=== PATIENT | female | born 1975 | race Caucasian/White ===

== ENCOUNTER 2019-11-27 17:38 | Emergency (ER) | payer BC, SELFPAY ==
--- NOTE | ~2019-11-27 | XR_ITS ---
XR wrist RT min 3V 11/27/2019 18:03 INDICATION: Right wrist pain PROCEDURE: 4 views right wrist COMPARISON: No prior studies for comparison. FINDINGS: Fracture, dislocation or subluxation is not identified. The soft tissues appear within norm al limits. No foreign bodies are identified. IMPRESSION: 1: NO ACUTE BONE OR JOINT ABNORMALITY IDENTIFIED. Reviewed, dictated and finalized at location A.
[2019-11-27 17:48] VITALS: BP 131/70; PULSE 66; RESP 18; TEMP 36.5; O2SAT 100
--- NOTE | 2019-11-27 18:03 | ED.UPPEXIN ---
HPI - Extremity Injury (Upper) General Chief Complaint: Extremity Injury, Upper Stated Complaint: right wrist injury Time Seen by Provider: 11/27/19 18:03 Source: patient and RN notes reviewed History of Present Illness HPI narrative: Patient is a 44-year-old female who presents the urgent care with complaints of right wrist pain after falling forward in her driveway over a crack. Patient denies hitting her head or any loss of consciousness. Patient denies any other acute injuries. No other acute complaints. No acute distress noted. Patient aware of the plan of care. Related Data Home Medications Medication Instructions Recorded Confirmed albuterol sulfate 1 inh INHALATION QID PRN 02/12/19 02/12/19 pantoprazole 40 mg PO HS 02/12/19 02/12/19 paroxetine HCl [Paxil] 10 mg PO QAM 02/12/19 02/12/19 Allergies Allergy/AdvReac Type Severity Reaction Status Date / Time bupropion [From Wellbutrin] Allergy Hives Verified 02/12/19 14:26 Review of Systems Review of Systems: Narrative: CONSTITUTIONAL: Denies fever, chills, or sweats. EYES: Denies visual changes, redness, or discharge. ENT: Denies rhinorrhea, congestion, sore throat, or otalgia. CARDIOVASCULAR: Denies chest pain, palpitations, or edema. RESPIRATORY: Denies cough or dyspnea. GASTROINTESTINAL: Denies abdominal pain, nausea, vomiting, or diarrhea. GENITOURINARY: Denies dysuria or hematuria. SKIN: Denies rash or itching. MUSCULOSKELETAL: Reports of right wrist pain NEUROLOGIC: Denies headache, numbness, or weakness. All other systems reviewed are negative, except as documented in HPI. PMFSH Social History Social History Gender identity (if verbalized by the patient): Female Comments At the time of my signature, I reviewed and agree with the nursing past medical, surgical, social, and family history. There is no relevant family history pertinent to the patient complaint. Exam Narrative: Exam Narrative: GENERAL: This is a well-nourished, well-developed patient, in no apparent distress. HEAD: normocephalic, atraumatic. EYES: PERRL. Sclera clear/white. Vision is grossly intact. EARS: External ears normal NOSE: External nose normal with no obvious nasal discharge, nares without redness, no rhinorrhea. THROAT: Mucous membranes moist NECK: Neck supple SKIN: warm, intact with no suspicious lesions or rash, good texture and turgor. NEURO: awake, alert, and oriented to person, place and time. There were no obvious focal neurologic abnormalities. EXTREMITIES: Very mild swelling to the dorsal aspect of the right wrist without any deformity noted. Positive strong right radial pulse with capillary refill less than 2 seconds. No notable ecchymosis. Range of motion within normal limits. Course Vital Signs Vital signs: Vital Signs Temperature 97.7 F 11/27/19 17:48 Pulse Rate 66 11/27/19 17:48 Respiratory Rate 18 11/27/19 17:48 Blood Pressure 131/70 11/27/19 17:48 Pulse Oximetry 100 11/27/19 17:48 Temperature 97.7 F 11/27/19 17:48 Pulse Rate 66 11/27/19 17:48 Respiratory Rate 18 11/27/19 17:48 Blood Pressure 131/70 11/27/19 17:48 Pulse Oximetry 100 11/27/19 17:48 Reviewed MDM - Extremity Injury (Upper) MDM Narrative Medical decision making narrative: Reviewed x-ray results with the patient. Aware the x-ray was negative for any fracture deformity of the right wrist. Advised the patient to and wear an Ronaldo wrap as needed for comfort and support. Limit weightbearing activity until activity as tolerated as normal. Use Tylenol/ibuprofen as needed. May use ice as needed for comfort. Follow-up with your PCP within 2 to 5 days or for worsening symptoms or failure to improve. Differential Diagnosis Differential diagnosis: Likely sprain and strain of wrist, fracture of wrist and fracture of hand Imaging Data Radiologist's impression: [facility] [address] [facility]
== END 2019-11-27 18:24 | disposition home or self-care (01) ==
PROVIDERS: Emergency Provider Nurse Practitioner Family; PCP Family Medicine
DX: S63.501A Unspecified sprain of right wrist, initial encounter (principal); S66.911A Strain of unspecified muscle, fascia and tendon at wrist and hand level, right hand, initial encounter; W19.XXXA Unspecified fall, initial encounter; J45.909 Unspecified asthma, uncomplicated; Z98.84 Bariatric surgery status; F41.9 Anxiety disorder, unspecified; F32.9 Major depressive disorder, single episode, unspecified
CPT/HCPCS: 73110; 99213; G0463